=== PATIENT | female | born 1995 | race African-American/Black ===

== ENCOUNTER → 2019-11-30 | Outpatient (REF) | payer OTHER | LOC: M LAB REF 13:00 | PROVIDERS: ATTEND Obstetrics & Gynecology | DX: Z36.85 Encounter for antenatal screening for Streptococcus B (principal) ==

== ENCOUNTER 2019-12-26 10:32 | Inpatient (IN) | payer OTHER ==
[~2019-12-26] VITALS: Ht 165.1 cm; Wt 88.7 kg
[2019-12-26] VITALS (18 sets, daily range): BP systolic 108–136; BP diastolic 56–83
[2019-12-26] MEDS ORDERED: PRENTAB9 PO (10:47)
[2019-12-26] MEDS ORDERED: LACTATED RINGER'S 1000 ML IV ONE (11:30)
[2019-12-26 11:40] LABS: BASO % 0.4 % (0.0-1.0); EOS % 0.2 % (0.0-3.0); HEMATOCRIT 30.9 % (36.0-47.0); HEMOGLOBIN 10.2 g/dl (12.0-15.5); LYMPH # 1.1 10^3/uL (1.5-5.0); LYMPH % 20.2 % (24.0-44.0); MEAN CORPUSCULAR HEMOGLOBIN 25.4 pg (27.0-33.0); MEAN CORPUSCULAR VOLUME 77.1 fl (80.0-96.0); MONO # 0.6 10^3/uL (0.0-0.8); MONO % 10.9 % (0.0-5.0); NEUTROPHILS # 3.6 10^3/uL (1.5-8.5); NEUTROPHILS % 66.4 % (36.0-66.0); PLATELET COUNT, AUTOMATED 173 10^3/uL (150-450); RED BLOOD COUNT 4.01 10^6/uL (4.00-5.40); WHITE BLOOD COUNT 5.3 10^3/uL (4.0-10.0)
[2019-12-26] MEDS ORDERED: LR 1,000 ML IV SCH (12:00)
[2019-12-26] MEDS: miSOPROStol 50 MCG 1/2 TAB (S0191) PO SCH ×3 (12:03→19:17)
[2019-12-26] MEDS ORDERED: OXYTOCIN 30 UNITS IN 0.9% NaCl 500ML IV BAG (J2590) As Ordered ONE (16:37)
[2019-12-26] MEDS ORDERED: OXYTOCIN DRIP 30 UNITS in IV 1 EA IV SCH (16:45)
[2019-12-26] MEDS ORDERED: FENTANYL 2MCG/ML ROPIVACAINE 0.2% IN 0.9% NACL 100ML IVBAG As Ordered ONE (19:37)
[2019-12-26] MEDS ORDERED: NALOXONE INJ 0.4 MG/1 ML VIAL (J2310) IV PRN (21:15)
[2019-12-26] MEDS ORDERED: EPIDURAL COMMENT XX SCH (21:15)
[2019-12-26] MEDS ORDERED: EPIDURAL/PCA KEYS XX PRN (21:15)
[2019-12-26] MEDS ORDERED: LACTATED RINGER'S 1000 ML IV PRN (21:15)
[2019-12-26] MEDS ORDERED: diphenhydrAMINE INJ 50MG/ML VIAL (J1200) IV PRN (21:15)
[2019-12-26] MEDS ORDERED: REFRIGERATOR IV KEYS XX PRN (21:15)
[2019-12-26] MEDS ORDERED: ONDANSETRON 4MG/2ML VIAL (J2405) IV PRN (21:15)
[2019-12-26] MEDS ORDERED: FENTANYL/ROPIVACAINE/NACL BAG 100 ML EPIDURAL SCH (21:15)
[2019-12-26] MEDS ORDERED: ePHEDrine SULFATE 25 MG/5 ML(5MG/ML) SYRINGE IV PRN (21:15)
--- NOTE | 2019-12-26 23:48 | HPE ---
DATE OF ADMISSION: 12/26/2019 Sandie is a 24-year-old female, 3, para 2-0-0-2 with an estimated date of confinement (EDC) of 12/22/2019, estimated gestational age (EGA) 40-4/7 weeks gestation who presented to the office with leakage of fluid. She was found to be grossly ruptured, approximately 2 cm dilated. At this point, a decision was made to admit the patient. Her record reviewed. LAB: Blood type is A negative, rubella immune, hepatitis negative, HIV negative, GC, chlamydia negative. She had a history of positive Trichomonas with this ; test of cure was negative. PAST MEDICAL HISTORY: Denies. PAST SURGICAL HISTORY: [place] tooth extraction. SOCIAL HISTORY: She denies any alcohol, drugs or cigarette smoking. REVIEW OF SYSTEMS: Unremarkable. MEDICATIONS: vitamin. ALLERGIES: No known drug allergies. PHYSICAL EXAMINATION: HEENT: Grossly within normal limits. Abdomen: Soft, nontender, nondistended. Extremities: No clubbing, cyanosis or edema. Vaginal exam: 2 cm dilated, 60% effaced, fetus at -3 station in a vertex position. Tracing reviewed, category one tracing. ASSESSMENT: Intrauterine at 40-4/7 weeks gestation with spontaneous rupture of membranes, in early labor. PLAN: Admit to labor and delivery. Cytotec induction to be initiated. Will continue to monitor. Anticipate delivery.
[2019-12-27] MEDS ORDERED: OXYTOCIN DRIP 30 UNITS in IV 1 EA IV SCH (00:53)
[2019-12-27] MEDS ORDERED: RHOGAM 300 MCG (1500 IU) INJ (J2790) IM SCH (01:00)
[2019-12-27] MEDS ORDERED: IBUPROFEN 600 MG TAB PO PRN (01:00)
[2019-12-27] MEDS ORDERED: ANUSOL HC CREAM 30GM TOP PRN (01:00)
[2019-12-27] MEDS ORDERED: IBUPROFEN 800 MG TAB PO PRN (01:00)
[2019-12-27] MEDS ORDERED: DOCUSATE SODIUM 100 MG CAP PO PRN (01:00)
[2019-12-27] MEDS ORDERED: METHYLERGONOVINE MALEATE 0.2 MG TAB PO PRN (01:00)
[2019-12-27] MEDS ORDERED: DIBUCAINE 1% OINTMENT 30GM TOP PRN (01:00)
[2019-12-27] MEDS ORDERED: ACETAMINOPHEN TAB 650MG DOSE (2X325MG) PO PRN (01:00)
[2019-12-27] MEDS ORDERED: MEASLES,MUMPS,RUBELLA VACCINE INJ (MMR-II) (90707) SC SCH (01:00)
[2019-12-27 03:39] VITALS: BP 106/57
[2019-12-27 05:55] VITALS: BP 120/67
[2019-12-27] MEDS: PRENATAL VITAMINS CHEWABLE TABLET PO SCH (09:15)
--- NOTE | 2019-12-27 12:42 | DN ---
DATE OF DELIVERY: 12/27/2019 Sandie is a 24-year-old female, 3, para 2, who was admitted at 40-4/7 weeks' gestation after presenting with spontaneous rupture of membranes. She underwent Cytotec induction followed by Pitocin induction, progressed to fully dilated, delivered a live female infant in a left occiput anterior position with a nuchal cord times one. scores 8 and 9. weight 7 pounds 4 ounces. Placenta delivered spontaneously intact. Three-vessel cord. Perineum, vagina, and cervix inspected. No laceration noted. Estimated blood loss 250 mL. Both mother and baby in stable condition.
[2019-12-27] MEDS: ACETAMINOPHEN 500 MG TAB PO PRN ×2 (13:45→22:10)
[2019-12-27 18:00] VITALS: BP 107/59
[2019-12-28] MEDS: PRENATAL VITAMINS CHEWABLE TABLET PO SCH (08:17)
== END 2019-12-28 12:10 | disposition home or self-care (01) | DRG 560 ==
LOC: M LDI 10:32 → M OBS 12-27 02:59
PROVIDERS: ADMIT Obstetrics & Gynecology; ATTEND Obstetrics & Gynecology
PROC: 10E0XZZ Delivery of Products of Conception, External Approach (ICD-10-PCS; principal; 2019-12-27)
DX: O48.0 Post-term pregnancy (principal); Z37.0 Single live birth; Z3A.40 40 weeks gestation of pregnancy